=== PATIENT | female | born 1995 | race Caucasian/White ===

== ENCOUNTER 2024-10-29 12:21 | Emergency (ER) | payer BC ==
[2024-10-29] MEDS: Ketorolac 60 MG/2 ML SDV IM ONE (13:14)
[2024-10-29] MEDS: Orphenadrine 60 MG/2 ML Inj IM ONE (13:15)
== END 2024-10-29 13:55 | disposition home or self-care (01) ==
LOC: MW.ED 12:21
DX: M54.41 Lumbago with sciatica, right side (principal); M54.42 Lumbago with sciatica, left side; Z79.899 Other long term (current) drug therapy; Z75.3 Unavailability and inaccessibility of health-care facilities
CPT/HCPCS: 72131; 96372; 99284; J1885; J2360